=== PATIENT | female | born 1960 | race Caucasian/White ===

== ENCOUNTER 2022-08-20 08:17 | Day surgery (SDC) | payer BC, SELFPAY ==
[2022-08-20] VITALS (10 sets, daily range): BP systolic 99–142; BP diastolic 54–95; PULSE 65–75; RESP 9–22; TEMP 36–36.4; O2SAT 92–100; BMI 30.1
[2022-08-20] MEDS: Ketorolac 30 MG/ML VIAL IVP (09:19)
[2022-08-20] MEDS: Lactated Ringers 1,000 ML 80 ML IV (09:23)
--- NOTE | 2022-08-20 10:19 | W.SURGCON ---
Date of service: 08/20/22 Time of Service: 10:20 Assessment and Plan Assessment and plan (1) GI bleed: Status: Chronic Assessment and plan: 61-year-old woman with GI bleeding of unknown etiology or significance. Upper and lower endoscopy indicated. Possible hemorrhoid banding if hemorrhoids are found to be the problem. History of Present Illness Narrative: Patient well-known to me. She has a family history of colon cancer in a paternal aunt as well as a paternal uncle. She had her last colonoscopy 5 years ago which was reportedly normal. Over the last few months she has developed bleeding in her stools. The blood is mixed in with her stools. This is a new finding for her. She is otherwise not having any pain. She does have chronic constipation. PFSH All Active Problems (Updated 08/20/22 @ 10:21 by Juan Jose Saleem MD) GI bleed (Chronic) Acquired anophthalmos (Acute) Allergic rhinitis (Acute) Bilateral knee pain (Acute) Chronic constipation (Acute) Chronic fatigue syndrome (Acute) Chronic sinusitis (Acute) Depressive disorder (Chronic) Disorder of ethmoidal sinus (Acute) Dizziness and giddiness (Acute) Dysphagia (Acute) Gastric polyposis (Acute) Gastritis (Acute) GERD (gastroesophageal reflux disease) (Chronic) Goiter (Acute) Hernia of abdominal cavity (Acute) Hypercholesteremia (Acute) Hypothyroidism (Chronic) Insomnia (Acute) Iron deficiency anemia (Acute) Malignant tumor of thyroid gland (Acute) Menopause present (Acute) Migraine without aura (Acute) 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) Lung nodule (Acute) Obesity (Chronic) Obstructive sleep apnea syndrome in adult (Acute) Periodic limb movement disorder (Acute) Pure hyperglyceridemia (Acute) Sleep disorder (Acute) URI (upper respiratory infection) (Acute) Rectal bleeding (Acute) Medical History (Updated 08/20/22 @ 10:21 by Juan Jose Saleem MD) Amnesia Breast lump Bursitis Burst fracture of lumbar vertebra Disorder of thyroid gland Hypersomnia Joint pain Refractory migraine with aura Surgical History H/O tubal ligation History of ankle surgery (~12/08/08) History of colonoscopy 06/25/19 History of esophagogastroduodenoscopy (EGD) 09/13/19 History of eye removal (R) eye removal History of Rox fundoplication 07/02/20 History of thyroidectomy Hx of cataract surgery right eye Hx of cholecystectomy Hx of total hysterectomy laparoscopic. Family History Maternal Grandfather CAD (coronary artery disease) Mother Stroke Diabetes Heart disease Lupus Myocardial infarction Father Stroke Heart disease Brother Lung cancer Aunt Colon cancer Uncle Colon cancer Social History Smoking/Tobacco Use Status: Former Tobacco Use Quit Date: 02/07/99 Smoking risk assessment performed?: Yes Alcohol Intake: current Alcohol Intake frequency: holidays/special occasions only Drug use: Never Substance use type: does not use Housing: house Do you feel safe at home: Yes Do you feel safe in your relationship?: Yes Exam Narrative Exam Narrative: General: Nontoxic, comfortable and interactive Neuro: Alert and oriented x3 Psych: Appropriate mood and affect, good insight and understanding into her condition Chest: Nonlabored breathing Heart: Regular Results Last Vital Signs Temp 97.5 F L 08/20/22 08:30 Pulse 71 08/20/22 08:30 Resp 16 08/20/22 08:30 BP 127/95 H 08/20/22 08:30 Pulse Ox 98 08/20/22 08:30
--- NOTE | 2022-08-20 10:24 | ANES.PREOP_ITS ---
General Info Date of Service Date Performed: 08/20/22 Height: 5 ft 3 in Weight: 77.2 kg Body Mass Index (BMI): 30.1 Surgical Procedure: Operation Date: 08/20/22 10:20 Proposed Procedure Side Surgeon p Colonoscopy/Gastroscopy Juan Jose Saleem MD Meds Allergies and Home Medications Allergies Allergy/AdvReac Type Severity Reaction Status Date / Time aspirin AdvReac Intermediate nausea Verified 08/20/22 09:05 meperidine AdvReac Unknown Nausea Verified 08/20/22 09:05 Home Medication Medication Instructions Recorded ascorbate calcium (vitamin C) 500 500 mg PO DAILY 03/19/22 mg tablet atorvastatin 20 mg tablet 20 mg PO DAILY 03/19/22 calcium carbonate 600 mg-vitamin 1 tab PO DIRECTED 03/19/22 D3 5 mcg (200 unit) tablet cetirizine 10 mg capsule (Zyrtec) 10 mg PO DAILY PRN 03/19/22 duloxetine 60 mg capsule,delayed 60 mg PO DAILY 03/19/22 release elderberry See Rx Instructions .Route .COMPLEX 03/19/22 magnesium oxide 400 mg (241.3 mg 400 mg PO DAILY 03/19/22 magnesium) tablet meclizine 25 mg tablet 25 mg PO TID PRN 03/19/22 multivitamin 1 tab PO DAILY 03/19/22 hydrochlorothiazide 25 mg tablet 25 mg PO DAILY 08/16/22 omeprazole 20 mg capsule,delayed 20 mg PO DAILY 08/16/22 release vitamin B complex 1 cap PO DAILY 08/16/22 bisacodyl 5 mg tablet,delayed 5 mg PO ONCE colonscopy bowel prep 08/18/22 release (Dulcolax (bisacodyl)) #4 tabs levothyroxine 88 mcg capsule 88 mcg PO DAILY 08/18/22 mecobalamin (vitamin B12) 500 mcg 1,000 mcg PO DAILY 08/18/22 chewable tablet polyethylene glycol 3350 17 238 g PO ONCE colonoscopy prep 08/18/22 gram/dose oral powder #238 grams Current Visit Medications: Current Medications Generic Name Dose Route Start Last Admin Trade Name Freq PRN Reason Stop Dose Admin Ringer's Solution 1,000 mls @ 80 mls/hr 08/20/22 06:00 08/20/22 09:23 IV 09/18/22 23:59 80 mls/hr INFUSION TONA Administration IV Miscellaneous Supplies 1 each 08/20/22 06:00 Iv Access IV 09/18/22 23:59 DIRECTED TONA Sodium Chloride 0 ml 08/20/22 06:00 Normal Saline Flush 10 Ml Syr IV 09/18/22 23:59 PRN PRN Sodium Chloride 0 ml 08/20/22 06:00 Normal Saline 10 Ml Vial IJ 09/18/22 23:59 DIRECTED PRN Sterile Water 0 ml 08/20/22 06:00 Water,Injection,Sterile 10 Ml Vial IJ 09/18/22 23:59 DIRECTED PRN PFSH Active Problems Active Problems: Problem Status Onset Code GI bleed K92.2 Acquired anophthalmos Z90.01 Allergic rhinitis J30.9 Bilateral knee pain M25.561, M25.562 Chronic constipation K59.09 Chronic fatigue syndrome G93.32 Chronic sinusitis J32.9 Depressive disorder F32.A Disorder of ethmoidal sinus J34.9 Dizziness and giddiness R42 Dysphagia R13.10 Gastric polyposis K31.7 Gastritis K29.70 GERD (gastroesophageal reflux disease) K21.9 Goiter E04.9 Hernia of abdominal cavity K46.9 Hypercholesteremia E78.00 Hypothyroidism E03.9 Insomnia G47.00 Iron deficiency anemia D50.9 Malignant tumor of thyroid gland C73 Menopause present Z78.0 Migraine without aura G43.009 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 G56.90, G58.7 Lung nodule R91.1 Obesity E66.9 Obstructive sleep apnea syndrome in adult G47.33 Periodic limb movement disorder G47.61 Pure hyperglyceridemia E78.1 Sleep disorder G47.9 URI (upper respiratory infection) J06.9 Rectal bleeding K62.5 Medical History Medical History (Updated 08/20/22 @ 10:21 by Juan Jose Saleem MD) Amnesia Breast lump Bursitis Burst fracture of lumbar vertebra Disorder of thyroid gland Hypersomnia Joint pain Refractory migraine with aura Surgical History Surgical History H/O tubal ligation History of ankle surgery (~12/08/08) History of colonoscopy 06/25/19 History of esophagogastroduodenoscopy (EGD) 09/13/19 History of eye removal (R) eye removal History of Rox fundoplication 07/02/20 History of thyroidectomy Hx of cataract surgery right eye Hx of cholecystectomy Hx of total hysterectomy laparoscopic. Tobacco Smoking/Tobacco Use Status: Former Tobacco Use Alcohol Alcohol Intake: current Alcohol intake frequency: holidays/special occasions only Substance Use Substance use: Never Substance use type: does not use Vital Signs and Lab Results Vital Signs Most Recent Vital Signs in EMR: Most Recent Vital Signs Temp Pulse Resp BP Pulse Ox 36.4 C L 71 16 127/95 H 98 08/20/22 08:30 08/20/22 08:30 08/20/22 08:30 08/20/22 08:30 08/20/22 08:30 Lab Results Blood Type / Crossmatch: No Data to Display Complete Blood Count: No Data to Display Complete Metabolic Panel: No Data to Display Liver Function Panel: No Data to Display Coagulation Panel: No Data to Display Cardiac Panel: No Data to Display Arterial Blood Gas: No Data to Display Venous Blood Gas: No Data to Display Pancreas Panel: 2 No Data to Display Thyroid Panel: No Data to Display Infectious Disease: No Data to Display Blood Cultures: No Data to Display Toxicology Panel: No Data to Display Anesthesia Assessment and Plan Anesthesia History Personal History: Other Family History: No Family History of Anesthesia Complications Exercise Tolerance Exercise Tolerance: Metabolic Equivalents>4 Pertinent Negatives Pertinent Negatives: No Major Cardiovascular Symptoms or Complaints and No Major Pulmonary Symptoms or Complaints Cardiac & Pulmonary Exam Cardiac Exam: Normal S1/S2 Heart Sounds Pulmonary Exam: Clear Bilateral Breath Sounds Implantable Cardiac Device Does patient have a Pacemaker or an ICD?: No Airway Exam Known Difficult Airway: No Mallampati Class: 1 Mouth Opening: Normal (> 3cm) Thyromental Distance: Greater than 3 cm Neck Range of Motion: Full ROM Neck Circumference: Normal Teeth Condition: Normal Dentition ASA Classification ASA Score: ASA 2 Emergency Case?: No NPO Status NPO Status: NPO Clears >2 hours, Solids >8 hours Anesthesia Plan Resuscitation Status: Full Code Anesthesia Technique: General Anesthesia Airway Planned: Natural Airway Monitors Used: Standard Monitors
--- NOTE | 2022-08-20 10:49 | STOM_PTH ---
PATIENT: Kristen Lopez LOC: [facility] U#:[id number] AGE/SX: 61/F ROOM: RE08/20/[address]: Juan Jose Saleem : 1960 BED: DIS: 08/20/2022 SPEC #: [id number] RECD: 08/20/22 12:31 STATUS: DANA RE #: [id number] NAMRATA: 08/20/22 10:[address]: Juan Jose Saleem DEPT: Surgical Specimen RECD BY: Medina Perales ENTERED: 08/20/22 12:32 SP TYPE: STOMACH OTHR DR: Mata Carroll Tissues: 1 - BIOPSY BOWEL 2 - STOMACH BIOPSY Procedures: GROSS AND MICRO LEVEL 4 Comments: [id number]
--- NOTE | 2022-08-20 11:20 | W.PM.ENDDOP ---
Date of service: 08/20/22 Time of Service: 10:45 Endoscopy Report PROCEDURE DESCRIPTION: Procedures performed: 1.? Esophagogastroduodenoscopy with cold forceps biopsies Preoperative diagnosis: GI bleeding Postoperative diagnosis: Mild duodenitis, benign?appearing gastric polyps Surgeon: Joyce Saleem Anesthesia: Norma Indication for procedure: 61-year-old woman who has been seeing bright red blood mixed in with her stools. No other symptoms. Findings: - D3, D2 and D1 - mild inflammation in the duodenal bulb. Biopsies taken to confirm. - Pylorus - patent.? No bile reflux visualized during procedure. - Antrum - does not look inflamed - biopsies taken to rule out occult H. pylori - Stomach Body - normal with a couple of benign?appearing gastric polyps - Fundus - fundoplication intact. Wrap below the hiatus. - Hiatus - no evidence of recurrent hernia, fundoplication appears correct. - Esophagus - distal esophagus does not look inflamed.? No stricture or evidence of Case's.? The mid and proximal esophagus was also normal. - Cords/hypopharynx - Normal OVERALL - nothing found/seen which would explain GI bleeding. Mild duodenitis would not be the cause of bright red blood mixed in stool. Surveillance/follow-up recommendations: Pending biopsy results.?? Unlikely to be necessary.?? Complications: None Blood loss: Minimal Specimens:? YES Procedure in detail: Written consent was obtained from the patient who was in agreement with the risks, benefits and indications of the procedure.? We went to the endoscopy suite and laid the patient in left lateral decubitus position.? Anesthesia was administered which was tolerated well.? A timeout was performed and when we are all in agreement we began the procedure. A well?lubricated endoscope was advanced without difficulty down the esophagus, into the stomach, through a patent pylorus and into the duodenum.? It was then slowly pulled back with findings noted above. The scope was then removed and the patient tolerated the procedure well and was then turned for the colonoscopy portion of the procedure (see separate procedure note)
--- NOTE | 2022-08-20 11:20 | W.COLOREPORT ---
Date of service: 08/20/22 Time of Service: 10:55 Colonoscopy Report Procedure Description: Procedures performed: 1. Colonoscopy Preoperative diagnosis: GI bleeding Postoperative diagnosis: Grade 2 / 3 internal hemorrhoids Surgeon: Joyce Saleem Anesthesia: Sandra Indication for procedure: 61-year-old woman has a strong family history of colon cancer in paternal aunt and paternal uncle. Prior colonoscopies were normal. Findings: No polyps or tumors. No evidence of inflammation or colitis. No diverticuli that were obvious. Grade 2 internal hemorrhoids along 2 columns and grade 3 internal hemorrhoids along 1 column. Surveillance/follow-up recommendations: Blood mixed with stool felt to be likely related to hemorrhoids. 5 years for next colorectal cancer surveillance colonoscopy Complications: None Blood loss: Minimal Prep: Excellent Procedure in detail: Written consent was obtained from the patient who was in agreement with the risks, benefits and indications of the procedure.? The patient was turned from her upper endoscopy (see separate procedure note) and anesthesia was continued and the patient was kept in the same position and I started the colonoscopy portion of the procedure.? Digital rectal exam and visual examination was performed.? Normal sphincter tone.? Internal hemorrhoids are palpable.? A well?lubricated colonoscope was advanced without difficulty all the way to the cecum identified by the ileocecal valve, and triangular folds and appendiceal orifice.? It was then slowly withdrawn.?? Retroflexion was performed in the rectum.? The findings/interventions are noted above. The scope was then removed and the patient tolerated the procedure well and then hemorrhoid banding/anoscopy was performed (see separate procedure note).
--- NOTE | 2022-08-20 11:20 | W.PM.OP ---
Date of service: 08/20/22 Time of Service: 11:05 Operative Note Operative Note Refer to Anesthesia Record Procedure Description: Procedures performed: 1.? Anoscopy 2.? Internal Hemorrhoid banding x3 Preoperative diagnosis: Symptomatic grade 2 / 3 internal hemorrhoids Postoperative diagnosis: Same Surgeon: Joyce Saleem Anesthesia: Norma Indication for procedure: 61-year-old woman with bleeding in her stools and found to have significant hemorrhoidal disease on colonoscopy Findings: All 3 columns rubber?banded Surveillance/follow-up recommendations: No follow-up needed.? The durability of hemorrhoidal interventions varies greatly and sometimes is only a few years before other hemorrhoids develop/recur. Complications: None Blood loss: Minimal Specimens:? No Procedure in detail: Written consent was obtained from the patient who was in agreement with the risks, benefits and indications of the procedure.? She was kept in the same position after the colonoscopy was done (see separate procedure note) and a well?lubricated anoscope was introduced in the anal canal carefully evaluated for other pathology such as fistulas and/or fissures.? None were seen. Grade 2 internal hemorrhoids were visualized at all 3 columns. On the left side was a grade 3 hemorrhoid as well. Rubber band ligation was performed in all 3 columns, just above the dentate line.? The patient tolerated this procedure well. The scope was then removed and the PACU in stable condition and was having only mild perianal pain at that time.
--- NOTE | 2022-08-20 11:20 | W.PM.DSUDISC ---
Date of service: 08/20/22 Time of Service: 11:20 Discharge Plan Disposition Patient Disposition: Home Discharge Details Attending Provider: Juan Jose Saleem Primary Care Provider: Mata Carroll Home Meds and New Rx's Prescriptions: No Action calcium carbonate-vitamin D3 600 mg-5 mcg (200 unit) tablet 1 tab PO DIRECTED atorvastatin 20 mg tablet 20 mg PO DAILY duloxetine 60 mg capsule,delayed release(DR/EC) 60 mg PO DAILY elderberry See Rx Instructions .ROUTE .COMPLEX Rx Instructions: as directed; magnesium oxide 400 mg (241.3 mg magnesium) tablet 400 mg PO DAILY meclizine 25 mg tablet 25 mg PO TID PRN multivitamin Tablet 1 tab PO DAILY ascorbate calcium (vitamin C) 500 mg tablet 500 mg PO DAILY Zyrtec 10 mg capsule 10 mg PO DAILY PRN hydrochlorothiazide 25 mg tablet 25 mg PO DAILY omeprazole 20 mg capsule,delayed release(DR/EC) 20 mg PO DAILY vitamin B complex Capsule 1 cap PO DAILY polyethylene glycol 3350 17 gram/dose powder 238 g PO ONCE Qty: 238 0RF Rx Instructions: take per colonoscopy instructions bisacodyl [Dulcolax (bisacodyl)] 5 mg tablet,delayed release (DR/EC) 5 mg PO ONCE Qty: 4 0RF Rx Instructions: take per colonoscopy instructions levothyroxine 88 mcg capsule 88 mcg PO DAILY mecobalamin (vitamin B12) 500 mcg tablet,chewable 1,000 mcg PO DAILY Discharge Instructions Additional Instructions: FINDINGS: Internal hemorrhoidal disease was found and is probably the underlying cause of your symptoms. Multiple veins were banded today and hopefully this takes care of the problem. Separately, some mild inflammation was seen in your duodenum and biopsied. This also could be playing a role if symptoms persist, but is doubtful. We will wait for the biopsy results to decide. No evidence of colon cancer or any other concerning for serious problem. Activity:: Activity as Tolerated Diet:: As Tolerated Discharge Orders Discharge Orders: Discharge Order (Routine); Ordered 08/20/22 Ordered By: Juan Jose Saleem DS: Diagnosis Discharge Diagnosis (1) GI bleed: Status: Chronic Asessment and Plan: Stable. Possible duodenal inflammation found today. As well as significant internal hemorrhoidal disease.
[2022-08-20] MEDS: fentaNYL 100 MCG/2 ML VIAL IVP (11:54)
[2022-08-20] MEDS: Ondansetron 4 MG/2 ML VIAL IVP (11:56)
[2022-08-20] MEDS: Scopolamine 1 MG/3 DAYS PATCH TD (11:58)
[2022-08-20] MEDS: HYDROmorphone 2 MG/ML SYR IVP (12:22)
--- NOTE | 2022-08-20 12:45 | W.ANESPOSTOP ---
Postoperative Evaluation Date, Time and Location Date Performed: 08/20/22 Time Performed: 12:45 Patient Location: PACU Vital Signs Most Recent Imported Vital Signs: Most Recent Vital Signs Temp Pulse Resp BP Pulse Ox 36.4 C L 74 11 L 127/80 98 08/20/22 12:30 08/20/22 12:30 08/20/22 12:30 08/20/22 12:30 08/20/22 12:30 Pain Score Most Recent Pain Score: Most Recent Pain Score Pain Level 5 08/20/22 12:30 Assessment Mental Status: Awake (Alert & Oriented to Patient Baseline) Airway and Respiratory Function: Patent airway with normal (patient baseline) respiratory exam Cardiovascular Function: Hemodynamically Stable Hydration Status: Adequately Hydrated Nausea & Vomiting: No Nausea or Vomiting Pain: Pain is Moderate or Severe Postoperative Pain Management: Pain being addressed with medication Peripheral Nerve Block: Patient did not receive a nerve block
[2022-08-20] MEDS: Acetaminophen 500 MG TAB 1000 MG PO (13:21)
== END 2022-08-20 13:45 | disposition home or self-care (01) ==
PROVIDERS: PCP Registered Nurse; Visit Provider Student in an Organized Health Care Education/Training Program
PROC: (CPT 46221; principal; 2022-08-20 10:15)
PROC: (CPT 46221; 2022-08-20 10:15)
DX: K92.1 Melena (principal); K64.2 Third degree hemorrhoids; K64.1 Second degree hemorrhoids; K29.80 Duodenitis without bleeding; K31.7 Polyp of stomach and duodenum; K31.89 Other diseases of stomach and duodenum
CPT/HCPCS: 46221; 45378; 43239; 88305; J1170; J1885; J2001; J2405; J3010

== ENCOUNTER 2024-04-24 15:42 | Outpatient (CLI) | payer BC, SELFPAY ==
--- NOTE | 2024-04-24 13:30 | DI.RAD_ITS ---
Exam(s) XR SHOULDER RT COMPLETE 2+V EXAM: XR SHOULDER RT COMPLETE 2+V CLINICAL HISTORY: RIGHT SHOULDER PAIN. TECHNIQUE: 2D digital imaging was performed of the right shoulder. Two images were obtained. Axill james and Grashey views were obtained. COMPARISON: CR XR CHEST 2VW (D) from 04/29/2023 MR MR SHOULDER RT WO CONTRAST from 03/13/2024 FINDINGS: BONES: No acute fracture is present. No bony destructive lesion is seen. JOINTS: No dislocation present. There are degenerative changes seen at the acromioclavicular joint. The glenohumeral joint appears well maintained. SOFT TISSUE: Normal. IMPRESSION: Degenerative changes seen at the acromioclavicular joint. DATA REPOSITORY: RADIATION DOSE DELIVERED:
== END 2024-04-24 15:43 | disposition home or self-care (01) ==
LOC: DIORS 15:42
PROVIDERS: PCP Registered Nurse; Visit Provider Student in an Organized Health Care Education/Training Program
DX: M25.511 Pain in right shoulder (principal)
CPT/HCPCS: 73030

== ENCOUNTER 2024-11-23 15:45 | Observation (INO) | payer BC, SELFPAY ==
[2024-11-23] VITALS (61 sets, daily range): BP systolic 102–164; BP diastolic 67–86; PULSE 63–99; RESP 9–29; TEMP 34–36.7; O2SAT 75–100; BMI 30.5
--- NOTE | 2024-11-23 | DI.RAD_ITS ---
Exam(s) XR PORTABLE CHEST AP EXAM: XR PORTABLE CHEST AP CLINICAL HISTORY: Poor oxygen saturations TECHNIQUE: 2D digital imaging was performed. Portable semi-erect COMPARISON: CR XR CHEST 2VW (D) from 04/29/2023 CR XR SHOULDER RT COMPLETE 2+V from 04/24/[address] UPPER EXTREMITY RT WO from 09/24/2024 FINDINGS: LUNGS: Not well inflated. Near complete atelectasis of the right upper lobe. The densities are noted at both lung bases. Atelectasis versus infiltrates. No pleural abnormality seen. HEART: Normal size. AORTA: Normal diameter. BONES: Unremarkable for age. Soft tissues: Unremarkable. IMPRESSION: Severe right upper lobe atelectasis. Poor pulmonary inflation. Bibasilar atelectasis versus infiltrates. DATA REPOSITORY: RADIATION DOSE DELIVERED:
--- NOTE | 2024-11-23 07:15 | W.PM.DSUDISC ---
Date of service: 11/23/24 Discharge Plan Disposition Patient Disposition: Home Condition: Stable Discharge Details Attending Provider: Shad Jacobo Primary Care Provider: Walker Quintana Home Meds and New Rx's Prescriptions: New naproxen 250 mg tablet 250 - 500 mg PO BID PRN (Reason: moderate pain and swelling) Qty: 40 0RF oxycodone 5 mg tablet 5 - 10 mg PO .q4-6h MDD 30 mg PRN (Reason: severe pain) Qty: 18 0RF Continued cholecalciferol (vitamin D3) 125 mcg (5,000 unit) capsule 125 mcg PO DAILY venlafaxine 75 mg tablet 75 mg PO DAILY atorvastatin 20 mg tablet 20 mg PO DAILY elderberry See Rx Instructions .ROUTE .COMPLEX Rx Instructions: as directed; magnesium oxide 400 mg (241.3 mg magnesium) tablet 400 mg PO DAILY meclizine 25 mg tablet 25 mg PO TID PRN multivitamin Tablet 1 tab PO DAILY ascorbate calcium (vitamin C) 500 mg tablet 500 mg PO DAILY Zyrtec 10 mg capsule 10 mg PO DAILY PRN omeprazole 20 mg capsule,delayed release(DR/EC) 20 mg PO DAILY vitamin B complex Capsule 1 cap PO DAILY levothyroxine 88 mcg capsule 88 mcg PO DAILY Fiber (psyllium husk-sugar) 3.4 gram/12 gram powder 1 tbsp PO BID Qty: 1368 0RF Rx Instructions: take as instrucked albuterol sulfate 2.5 mg /3 mL (0.083 %) solution for nebulization 2.5 mg inhalation Q6H PRN ipratropium-albuterol 0.5 mg-3 mg(2.5 mg base)/3 mL solution for nebulization 3 ml inhalation QID PRN iron-vit C-vit [id number] acid [Iron 100 Plus] See Rx Instructions .ROUTE DIRECTED Rx Instructions: as directed; budesonide-formoterol [Symbicort] 80-4.5 mcg/actuation HFA aerosol inhaler 2 puff inhalation BID turmeric 250 mg PO DAILY hydrochlorothiazide 25 mg tablet 25 mg PO DIRECTED Discharge Instructions Additional Instructions: Surgery: Right shoulder arthroscopy with rotator cuff repair (supraspinatus), biceps tenodesis, extensive debridement, subacromial decompression, and distal clavicle excision 11/23/24 Activity: For 6 weeks, you should keep your arm at your side in a neutral position at all times except for physical therapy. Do not try to lift or raise your arm using your own muscles. You should use the sling whenever you are out of the house. At home it is best to remove the sling and rest the arm on a pillow at your side or support the operative side with your other hand. You may allow the arm to dangle at your side. A physical therapy prescription will be sent electronically to begin in about 3 weeks. Standard protocol Prescriptions: Naproxen 250 mg take 1-2 every 12 hours with a meal as needed for moderate pain Oxycodone 5 mg take 1-2 every 4-6 hours as needed for severe pain You may use [id number] Tylenol (acetaminophen) as needed for mild pain. These pain medications may be taken all at once or in different combinations as needed. Also, recommend Colace (docusate) as a stool softener as surgery and pain medicine cause constipation. You may try nurg-ewg-rvprqgb diphenhydramine (Benadryl) 25-50 mg nightly as a sleep aid Dressings: Remove shoulder bandage after 3 days. Leave the sticky Steri-Strips in place until they fall off or remove them after you shower. Cover the incisions with Band-Aids or leave them open to air. You may shower after 5 days. Follow-up: 10-[address] Jacobo You may take off the leg compression stockings this evening at home. You may also leave them on a few days longer if you have a history of leg swelling or edema. Let us know right away if you develop any redness, drainage, fevers, chest pain, or trouble breathing. Do not drink alcohol or drive for at least 24 hours after anesthesia. Please call the office during business hours with any questions or concerns. Discharge Orders Discharge Orders: Discharge Order (Routine); Ordered 11/23/24 Ordered By: Loyda Daley DS: Diagnosis Discharge Diagnosis (1) Rotator cuff tear arthropathy of right shoulder: Status: Acute
[2024-11-23] MEDS: Lactated Ringers 1,000 ML 30 ML IV ×2 (09:31→20:43)
--- NOTE | 2024-11-23 09:41 | W.ANESPRE ---
General Info Date of Service Date Performed: 11/23/24 Height: 5 ft 2 in Weight: 75.8 kg Body Mass Index (BMI): 30.5 Surgical Procedure: Operation Date: 11/23/24 10:25 Proposed Procedure Side Surgeon p Shoulder Rotator Cuff Arthroscopic w/Extensive Debridement, Biceps Tenodesis, Subacromial Decompression, Distal Clavicle Excision Right Shad Jacobo MD Meds Allergies and Home Medications Allergies Allergy/AdvReac Type Severity Reaction Status Date / Time aspirin AdvReac Intermediate nausea Verified 11/23/24 09:10 meperidine AdvReac Unknown Nausea Verified 11/23/24 09:10 Home Medication ?Medication ?Instructions ?Recorded ascorbate calcium (vitamin C) 500 500 mg PO DAILY 03/19/22 mg tablet atorvastatin 20 mg tablet 20 mg PO DAILY 03/19/22 cetirizine 10 mg capsule (Zyrtec) 10 mg PO DAILY PRN 03/19/22 elderberry See Rx Instructions .Route .COMPLEX 03/19/22 magnesium oxide 400 mg (241.3 mg 400 mg PO DAILY 03/19/22 magnesium) tablet meclizine 25 mg tablet 25 mg PO TID PRN 03/19/22 multivitamin 1 tab PO DAILY 03/19/22 omeprazole 20 mg capsule,delayed 20 mg PO DAILY 08/16/22 release vitamin B complex 1 cap PO DAILY 08/16/22 levothyroxine 88 mcg capsule 88 mcg PO DAILY 08/18/22 psyllium husk (with sugar) 3.4 1 tbsp PO BID #1,368 grams 08/26/22 gram/12 gram oral powder (Fiber (psyllium husk-sugar)) albuterol sulfate 2.5 mg/3 mL 2.5 mg inhalation Q6H PRN 05/19/23 (0.083 %) solution for nebulization budesonide-formoterol HFA 80 2 puff inhalation BID 05/19/23 mcg-4.5 mcg/actuation aerosol inhaler (Symbicort) ipratropium 0.5 mg-albuterol 3 mg 3 ml inhalation QID PRN 05/19/23 (2.5 mg base)/3 mL nebulization soln iron-vit C-vit [id number]-[id number] acid See Rx Instructions .Route 05/19/23 [Iron 100 Plus] DIRECTED turmeric 250 mg PO DAILY 05/19/23 hydrochlorothiazide 25 mg tablet 25 mg PO DIRECTED 07/15/23 cholecalciferol (vitamin D3) 125 125 mcg PO DAILY 04/24/24 mcg (5,000 unit) capsule venlafaxine 75 mg tablet 75 mg PO DAILY 09/18/24 Current Visit Medications: Current Medications Generic Name Dose Route Start Last Admin Trade Name Freq PRN Reason Stop Dose Admin Ringer's Solution 1,000 mls @ 30 mls/hr 11/23/24 06:00 11/23/24 09:31 IV 11/23/24 23:59 30 mls/hr INFUSION TONA Administration Cefazolin Sodium/Dextrose 2 gm in 50 mls @ 100 mls/hr 11/23/24 06:00 Ancef Duplex IVPB 11/23/24 23:59 PREOP TONA Tranexamic Acid/Sodium Chloride 1,000 mg in 100 mls @ 600 mls/hr 11/23/24 06:00 IVPB 11/23/24 23:59 PREOP TONA IV Miscellaneous Supplies 1 each 11/23/24 06:00 Iv Access IV 11/23/24 23:59 DIRECTED TONA Oxycodone HCl 0 mg 11/23/24 07:15 Oxycodone 5 Mg Tab PO 12/23/24 07:14 Q3H PRN PRN Pain Sodium Chloride 0 ml 11/23/24 06:00 Normal Saline Flush 10 Ml Syr IV 11/23/24 23:59 PRN PRN Sodium Chloride 0 ml 11/23/24 06:00 Normal Saline 10 Ml Vial IJ 11/23/24 23:59 DIRECTED PRN Sterile Water 0 ml 11/23/24 06:00 Water,Injection,Sterile 10 Ml Vial IJ 11/23/24 23:59 DIRECTED PRN PFSH Active Problems Active Problems: Problem Status Onset Code Rotator cuff tear arthropathy of right shoulder Acute M75.101, M12.811 Sleep apnea, obstructive Chronic G47.33 Anophthalmos Acute Q11.1 Hemorrhoid Acute K64.9 GI bleed Chronic K92.2 Acquired anophthalmos Acute Z90.01 Allergic rhinitis Acute J30.9 Bilateral knee pain Acute M25.561, M25.562 Chronic constipation Acute K59.09 Chronic fatigue syndrome Acute G93.32 Chronic sinusitis Acute J32.9 Depressive disorder Chronic F32.A Disorder of ethmoidal sinus Acute J34.9 Dizziness and giddiness Acute R42 Dysphagia Acute R13.10 Gastric polyposis Acute K31.7 Gastritis Acute K29.70 GERD (gastroesophageal reflux disease) Chronic K21.9 Goiter Acute E04.9 Hernia of abdominal cavity Acute K46.9 Hypercholesteremia Acute E78.00 Hypothyroidism Chronic E03.9 Insomnia Acute G47.00 Iron deficiency anemia Acute D50.9 Malignant tumor of thyroid gland Acute C73 Menopause present Acute Z78.0 Migraine without aura Acute G43.009 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, 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 Lung nodule Acute R91.1 Obesity Chronic E66.9 Obstructive sleep apnea syndrome in adult Acute G47.33 Periodic limb movement disorder Acute G47.61 Pure hyperglyceridemia Acute E78.1 Sleep disorder Acute G47.9 URI (upper respiratory infection) Acute J06.9 Rectal bleeding Acute K62.5 Medical History Medical History Refractory migraine with aura Joint pain Hypersomnia Disorder of thyroid gland Bursitis Breast lump Amnesia Burst fracture of lumbar vertebra Surgical History Surgical History History of eye removal (R) eye removal History of ankle surgery (~12/08/08) Hx of cataract surgery right eye Hx of cholecystectomy H/O tubal ligation Hx of total hysterectomy laparoscopic. History of colonoscopy (~08/2022) 06/25/19 History of esophagogastroduodenoscopy (EGD) (~08/2022) 08/20/22 egd and closed a duodenal fistula History of Rox fundoplication 07/02/20 History of thyroidectomy Tobacco Smoking/Tobacco Use Status: Former Tobacco Use Passive smoking exposure: No Alcohol Alcohol Intake: former Substance Use Substance use: Never Substance use type: does not use Vital Signs and Lab Results Vital Signs Most Recent Vital Signs in EMR: Most Recent Vital Signs Temp Pulse Resp BP Pulse Ox 36.3 C L 63 16 164/83 H 100 11/23/24 08:58 11/23/24 08:58 11/23/24 08:58 11/23/24 08:58 11/23/24 08:58 Anesthesia Assessment and Plan Anesthesia History Personal History: PONV (and migraines) Family History: No Family History of Anesthesia Complications Exercise Tolerance Exercise Tolerance: Metabolic Equivalents>4 Pertinent Negatives Pertinent Negatives: No Symptoms of GERD, No Major Cardiovascular Symptoms or Complaints and No Major Pulmonary Symptoms or Complaints Cardiac & Pulmonary Exam Cardiac Exam: Normal S1/S2 Heart Sounds Pulmonary Exam: Clear Bilateral Breath Sounds Implantable Cardiac Device Does patient have a Pacemaker or an ICD?: No Airway Exam Known Difficult Airway: No Mallampati Class: 1 Mouth Opening: Normal (> 3cm) Thyromental Distance: Greater than 3 cm Neck Range of Motion: Full ROM Neck Circumference: Normal Teeth Condition: Normal Dentition ASA Classification ASA Score: ASA 2 Emergency Case?: No NPO Status NPO Status: NPO Clears >2 hours, Solids >8 hours Anesthesia Plan Resuscitation Status: Full Code Anesthesia Technique: General Anesthesia Airway Planned: Endotracheal Tube Pain Management: Surgeon and patient request nerve block Monitors Used: Standard Monitors Preoperative Comments:: Artificial right eye, requests that eyelid is taped shut during procedure.
--- NOTE | 2024-11-23 11:01 | W.PM.OP ---
Operative Note Operative Note PRE-OP DIAGNOSIS: Right: 1. Rotator cuff tear 2. LHB tendinopathy 3. Bursitis 4. ACJ arthritis POST-OP DIAGNOSIS: same PROCEDURE: Right: 1. Rotator cuff repair, CPT# 47166. This involved repair of the supraspinatus using an anchor and sutures to reattach the rotator cuff back to the footprint of the greater tuberosity. 2. Arthroscopic biceps tenodesis, CPT# 80932. This involved arthroscopically suturing and reattaching the long head of the biceps tendon to the proximal humerus at the superior margin of the bicipital groove with a screw at the correct tension. 3. Extensive debridement, CPT# 06663. This involved using arthroscopic hand instruments, power instruments, and radiofrequency instruments to release the long head of the biceps tendon and debride areas of labral tearing, synovitis, partial articular subscapularis and supraspinatus tearing, release [facility] L and early anterior adhesions, and lightly debride chondromalacia about the central glenoid working within the glenohumeral joint anteriorly, superiorly and posteriorly. 4. Subacromial decompression with partial acromioplasty, CPT# 17274. This involved using arthroscopic power instruments and a radiofrequency wand to complete a bursectomy and smooth the undersurface of the acromion. 5. Arthroscopic distal clavicle excision, CPT# 44983. This involved arthroscopically exposing the underside of the acromioclavicular joint, smoothing out bone spurs, and removing few millimeters of the distal clavicle and medial acromion there was no bone left engaging. The marketing assistant manager was medically required in order to help assist in techniques above, which require positioning the arm, holding the arthroscope, and manipulating multiple instruments and sutures at the same time. This cannot be done without the help of an experienced marketing assistant manager. SURGEON: Shad Jacobo HELP DESK REPRESENTATIVE: Loyda Daley ANESTHESIA TYPE: Local By Surgeon, General LMA/ETT and Primary Nerve Block Refer to Anesthesia Record ESTIMATED BLOOD LOSS: 10 PATHOLOGY: none sent COMPLICATIONS: None Patient was transported to: PACU Patient's condition: stable Implants: Arthrex: 4.75mm SwiveLock x 1 and 5.5 mm SwiveLock x 1 Indications: The patient was diagnosed with the above conditions and appropriately indicated for surgical intervention. Please see complete medical record for details. Findings: Exam under anesthesia: Full range of motion, no instability Glenohumeral joint: Moderate synovitis capsulitis and early adhesions subscapularis [facility] L. Moderate central glenoid chondromalacia with more mild diffuse chondromalacia. Degenerative mild to moderate anterior and posterior superior labral tearing. Degenerative type I SLAP tear with biceps injection and mild partial tearing at the superior aspect of the groove near a mild upper lateral partial subscapularis tear. Moderate supraspinatus thinning central to anteriorly with mild footprint exposure. Intact infraspinatus.. Subacromial space: Moderate bursitis, early subacromial narrowing, engaging distal clavicle on acromion arthritis, intact bursal rotator cuff with hemorrhagic injection. Procedure Description: In the operating room, general anesthesia was induced. Bilateral shoulders were examined. The patient was positioned in the beachchair position. All bony prominences were well-padded. Preoperative antibiotics were administered. The shoulder was prepped and draped in the usual sterile fashion. The correct patient, procedure, and side of the procedure were all verified prior to incision. Starting through the posterior portal a standard complete diagnostic arthroscopy was performed of the glenohumeral joint including inspection of the long head of the biceps, anterior and superior labrum, subscapularis tendon, supraspinatus and infraspinatus tendons, and axillary recess. The glenoid and humeral head cartilage as well as the posterior labrum were inspected from an anterior viewing portal. Significant findings and interventions noted above. No significant arthritis was found. The subscapularis tendon tear only required some debridement. An all-arthroscopic suprapectoral biceps tenodesis was performed through an anterior portal using a Loop N Tack method with a SutureTape FiberLink cinched around and through the tendon. The biceps was tenotomized from the labrum and fixated with a suture anchor at the superior margin of the bicipital groove. The extra knotless repair suture was passed around the tendon back through the anchor eyelet mechanism and used an additional secured to the tendon which was draped nicely from the superior bicipital groove and over the subscapularis immediately adjacent. The highest grade area of supraspinous articular tear was marked with a spinal needle from lateral through the subacromial space. Starting through the posterior portal, the arthroscope was directed into the subacromial space. A lateral 50 yard line lateral portal was created. A combination of power instruments and a radiofrequency ablator were used to debride bursitis anteriorly, posteriorly, and laterally as well as expose and smooth bone spurring on the undersurface of the acromion. The coracoacromial ligament was partially released. The bursectomy was completed viewing laterally and working from posteriorly and the rotator cuff was thoroughly inspected with findings noted above. The anterior portal was redirected towards the undersurface of the AC joint. A shaver and electrocautery device were used to clear soft tissue from the undersurface of the AC joint. The distalmost about 5 mm of the distal clavicle was then removed and smoothed as was some of the medial acromion. Care was taken to to preserve the superior capsular structure and ensure that proper amount of bone was removed and there was no engaging bone left behind. A Dominique cannula was inserted laterally to help retract bursa and probe and test the rotator cuff especially supraspinatus centrally anteriorly and laterally. There was an area of thinning about the drop-off centrally anteriorly, which correlated with the area of highest grade articular sided tearing. The liberator elevator was then used from lateral preserving tendon length and quite readily fell into the tendon tear from lateral into the joint full-thickness. The tendon tear was debrided lightly and then measured with a cuff grasper showing a relatively small area especially laterally. Instead of releasing the majority intact tendon from lateral, decision was made to proceed with a speed fix type repair. The scorpion was used to place a widely and immediately spaced inverted horizontal mattress stitch followed by a central suture tape FiberLink in cinch mode as ripstop configuration nicely spanning the tear zone. The bone laterally was punched and quite soft so an oversized 5.5 mm anchor was used to secure without undue tension the rotator cuff repair. There was a small amount of redundant tissue anteriorly, which was incorporated into repair using the scorpion and the sliding #2 FiberWire with SMC arthroscopic knots. Repair was stable through testing. There is no additional tearing requiring repair. The shoulder was drained of arthroscopic fluid. All portal sites were copiously irrigated. These incisions were closed using 3-0 Monocryl in a buried fashion and then covered with Mastisol, Steri-Strips, Xeroform, dry gauze, and ABDs. The dressings were covered and secured with Medipore tape. The operative extremity was placed into a sling for immobilization. The patient awoke from anesthesia without complication and was transferred to the recovery room in a stable condition. Date of Procedure: 11/23/24
[2024-11-23] MEDS: TRANEXAMIC ACID/SOD. CHL. 1,000 MG/100 ML BAG 600 MG IVPB (11:29)
--- NOTE | 2024-11-23 11:47 | W.ANESNERVE ---
Nerve Block Single Injection Procedure Date and Time Date Performed: 11/23/24 Procedure Start: 10:46 Location Where Procedure Performed Procedure Location: Day Surgery Unit Reason Performed: Postoperative Analgesia Requesting Provider: Shad Jacobo Timeout Performed Timeout Performed: Yes Monitoring Used ECG, Blood Pressure, SpO2 and See EMR for corresponding vital signs Sterility Sterility: Hand Hygiene, Surgical Cap, Surgical Mask, Sterile Gloves and Chlorhexidine Sedation Given During Procedure Sedation Given (Indicate Dose Given): Versed IV Dose:: 2 mg Patient Mental Status Patient Mental Status: Sedate with meaningful communication Nerve Block 1st Nerve Block: Laterality: Right Block Type: Interscalene Ultrasound Image Saved?: Yes Needle / Catheter Used: 80mm SonoPlex II Local Anesthetic Bolus (Indicate Dose Given): Lidocaine used for local infiltration of skin, Injected in 3-5ml increments after negative blood aspiration, Bupivacaine 0.25% Dose:: 10 ml and Exparel Dose:: 10 ml Additives (Indicate Dose Given): None Ultrasound: Sterile probe cover and gel used Nerve Stimulator: Supplement to Ultrasound use and No twitch or parasthesia noted < 0.5 mA Paresthesia: None Procedure Tolerated: No Complications and Patient tolerated well Procedure Outcome: Successful Performed By: Rachana Gardner
[2024-11-23] MEDS: Bupivacaine 0.25% Pres-Free W/EPI 30 ML VIAL (12:03)
[2024-11-23] MEDS: ceFAZolin 2 GM/50 ML BAG IVPB (12:20)
[2024-11-23] MEDS: EPINEPHrine 10 MG/10 ML ML (13:05)
[2024-11-23] MEDS: oxyCODONE 5 MG TAB PO ×2 (15:35→16:00)
--- NOTE | 2024-11-23 16:54 | W.ANESPOSTOP ---
Postoperative Evaluation Date, Time and Location Date Performed: 11/23/24 Time Performed: 16:01 Patient Location: PACU Vital Signs Most Recent Imported Vital Signs: Most Recent Vital Signs Temp Pulse Resp BP Pulse Ox 36.7 C 87 20 129/79 93 11/23/24 16:21 11/23/24 16:21 11/23/24 16:35 11/23/24 16:21 11/23/24 16:35 Pain Score Most Recent Pain Score: Most Recent Pain Score Pain Level 8 11/23/24 16:21 Assessment Mental Status: Awake (Alert & Oriented to Patient Baseline) Airway and Respiratory Function: Patient has been admitted and is receiving care as an inpatient Cardiovascular Function: Hemodynamically Stable Hydration Status: Adequately Hydrated Nausea & Vomiting: No Nausea or Vomiting Pain: Pain is Moderate or Severe Postoperative Pain Management: Pain being addressed with medication Peripheral Nerve Block: Regional nerve block not resolved at time of post operative discharge
[2024-11-23] MEDS: Naproxen 250 MG TAB PO (17:03)
[2024-11-23] MEDS: Normal Saline Flush 10 ML SYR IV (20:13)
[2024-11-23] MEDS: MORPHine 10 MG/ML VIAL IVP ×2 (20:27→22:42)
[2024-11-24] MEDS: Naproxen 250 MG TAB PO ×2 (00:48→07:47)
[2024-11-24 03:30] VITALS: BP 101/65; PULSE 61; RESP 16; TEMP 36.5; O2SAT 93
[2024-11-24] MEDS: Acetaminophen 500 MG TAB 1000 MG PO (03:50)
[2024-11-24] MEDS: Levothyroxine 88 MCG TAB PO (06:04)
--- NOTE | 2024-11-24 06:49 | W.PM.DS.N ---
Date of service: 11/24/24 Time of Service: 06:49 DS: Diagnosis Discharge Diagnosis (1) Rotator cuff tear arthropathy of right shoulder: Status: Acute (2) Tendonitis of long head of biceps brachii of right shoulder: Status: Acute (3) Arthritis of right acromioclavicular joint: Status: Acute (4) Bursitis of right shoulder: Status: Acute (5) Rotator cuff tear, right: Status: Acute Discharge Plan Disposition Patient Disposition: Home Condition: Stable Discharge Details Reason For Visit: Rotator cuff tear Admit Date/Time: 11/23/24 15:45 Admit Provider: Shad Jacobo Attending Provider: Shad Jacobo Primary Care Provider: Walker Quintana Hospital Course Hospital Course: Overnight observation due to pain and respiratory status Home Meds and New Rx's Prescriptions: New naproxen 250 mg tablet 250 - 500 mg PO BID PRN (Reason: moderate pain and swelling) Qty: 40 0RF oxycodone 5 mg tablet 5 - 10 mg PO .q4-6h MDD 30 mg PRN (Reason: severe pain) Qty: 18 0RF Continued cholecalciferol (vitamin D3) 125 mcg (5,000 unit) capsule 125 mcg PO DAILY venlafaxine 75 mg tablet 75 mg PO DAILY atorvastatin 20 mg tablet 20 mg PO DAILY elderberry See Rx Instructions .ROUTE .COMPLEX Rx Instructions: as directed; magnesium oxide 400 mg (241.3 mg magnesium) tablet 400 mg PO DAILY meclizine 25 mg tablet 25 mg PO TID PRN multivitamin Tablet 1 tab PO DAILY ascorbate calcium (vitamin C) 500 mg tablet 500 mg PO DAILY Zyrtec 10 mg capsule 10 mg PO DAILY PRN omeprazole 20 mg capsule,delayed release(DR/EC) 20 mg PO DAILY vitamin B complex Capsule 1 cap PO DAILY levothyroxine 88 mcg capsule 88 mcg PO DAILY Fiber (psyllium husk-sugar) 3.4 gram/12 gram powder 1 tbsp PO BID Qty: 1368 0RF Rx Instructions: take as instrucked albuterol sulfate 2.5 mg /3 mL (0.083 %) solution for nebulization 2.5 mg inhalation Q6H PRN ipratropium-albuterol 0.5 mg-3 mg(2.5 mg base)/3 mL solution for nebulization 3 ml inhalation QID PRN iron-vit C-vit [id number] [Iron 100 Plus] See Rx Instructions .ROUTE DIRECTED Rx Instructions: as directed; budesonide-formoterol [Symbicort] 80-4.5 mcg/actuation HFA aerosol inhaler 2 puff inhalation BID turmeric 250 mg PO DAILY hydrochlorothiazide 25 mg tablet 25 mg PO DIRECTED Discharge Instructions Additional Instructions: Surgery: Right shoulder arthroscopy with rotator cuff repair (supraspinatus), biceps tenodesis, extensive debridement, subacromial decompression, and distal clavicle excision 11/23/24 Activity: For 6 weeks, you should keep your arm at your side in a neutral position at all times except for physical therapy. Do not try to lift or raise your arm using your own muscles. You should use the sling whenever you are out of the house. At home it is best to remove the sling and rest the arm on a pillow at your side or support the operative side with your other hand. You may allow the arm to dangle at your side. A physical therapy prescription will be sent electronically to begin in about 3 weeks. Standard protocol Prescriptions: Naproxen 250 mg take 1-2 every 12 hours with a meal as needed for moderate pain Oxycodone 5 mg take 1-2 every 4-6 hours as needed for severe pain You may use [id number] Tylenol (acetaminophen) as needed for mild pain. These pain medications may be taken all at once or in different combinations as needed. Also, recommend Colace (docusate) as a stool softener as surgery and pain medicine cause constipation. You may try [id number] diphenhydramine (Benadryl) 25-50 mg nightly as a sleep aid Dressings: Remove shoulder bandage after 3 days. Leave the sticky Steri-Strips in place until they fall off or remove them after you shower. Cover the incisions with Band-Aids or leave them open to air. You may shower after 5 days. Follow-up: 10-[address] Jacobo You may take off the leg compression stockings this evening at home. You may also leave them on a few days longer if you have a history of leg swelling or edema. Let us know right away if you develop any redness, drainage, fevers, chest pain, or trouble breathing. Do not drink alcohol or drive for at least 24 hours after anesthesia. Please call the office during business hours with any questions or concerns. Stand Alone Forms: Anesthesia Discharge Inst., Anish.Nerve Block Instructions, Gemini Salazar ([facility]) Referrals: Shad Jacobo MD [ [facility] STAFF PHYSICIAN, Orthopaedic Surgical] - 12/04/24 10:30 am Activity:: see instructions Equipment/Supplies:: Sling Diet:: As Tolerated Discharge Orders Discharge Orders: Discharge Order (Routine); Ordered 11/24/24 Ordered By: Shad Jacobo DS: Summary Time Spent with Patient providing and/or coordinating discharge services: Less than 30 minutes Status at Discharge Functional status at discharge: independent ambulation Overall status at discharge: patient is progressing back to baseline Mental Status: mental status grossly normal Speech and Movement: speech and movement normal Mood: congruent mood Affect: normal affect Exam Psych Mental Status: mental status grossly normal Speech and Movement: speech and movement normal Mood: congruent mood Affect: normal affect DS: Data Vitals/I&O Vitals and I&O: Vital Signs Temperature 97.7 F 11/24/24 03:30 Temperature Source Temporal Artery Scan 11/24/24 03:30 Pulse 61 11/24/24 03:30 Pulse Rhythm Regular 11/23/24 08:58 Pulse 95 H 11/23/24 16:01 Respiratory Rate 16 11/24/24 03:30 Respiratory Effort Normal 11/23/24 16:21 Respiratory Depth Normal 11/23/24 16:21 Respiratory Pattern Normal 11/23/24 16:21 Blood Pressure 101/65 11/24/24 03:30 Blood Pressure Mean 77 11/24/24 03:30 Blood Pressure Position Supine 11/23/24 11:00 Pulse Oximetry 93 11/24/24 03:30 Respiratory End-tidal CO2 36 11/23/24 14:16 Oxygen Delivery Method Room Air 11/24/24 03:30 Oxygen Flow Rate 0 11/24/24 03:30 Fraction of Inspired Oxygen (FIO2) 37 11/23/24 15:49 Pain Level 4 11/24/24 04:50 Comment Block performed by Yen GREEN with assistance from Alycia COLLINS Patient placed on continuous cardiac and spO2 monitoring at 1034 Time out performed at: 1046 2mg Versed IVP administered by Yen GREEN at 1047 Block end: 1054 11/23/24 10:33 Intake & Output 11/23/24 11/23/24 11/24/24 11:59 23:59 11:59 Intake Total 100 / 2360 2260 / 2360 699.5 / 699.5 Output Total Balance 100 / 2350 2250 / 2350 699.5 / 699.5 Weight 167 lb 1.766 oz Intake: IV 100 / 1660 1560 / 1660 219.5 / 219.5 Oral 700 / 700 480 / 480 Output: Estimated Blood Loss Other: Urine Color Yellow Yellow Urine Appearance Clear Clear Urine Odor Normal None Comment Pt reports voiding independently to toilet, not collected. Pt voided independently to toilet, not uncollected. Emesis Description None PFSH All Active Problems (Updated 11/24/24 @ 06:50 by Shad Jacobo MD) Rotator cuff tear, right (Acute) Bursitis of right shoulder (Acute) Arthritis of right acromioclavicular joint (Acute) Tendonitis of long head of biceps brachii of right shoulder (Acute) Tendinopathy of right biceps tendon (Acute) Rotator cuff tear arthropathy of right shoulder (Acute) s/p Right shoulder arthroscopy with rotator cuff repair (supraspinatus), biceps tenodesis, extensive debridement, subacromial decompression, and distal clavicle excision 11/23/24 Sleep apnea, obstructive (Chronic) Anophthalmos (Acute) Hemorrhoid (Acute) GI bleed (Chronic) Acquired anophthalmos (Acute) Allergic rhinitis (Acute) Bilateral knee pain (Acute) Chronic constipation (Acute) Chronic fatigue syndrome (Acute) Chronic sinusitis (Acute) Depressive disorder (Chronic) Disorder of ethmoidal sinus (Acute) Dizziness and giddiness (Acute) Dysphagia (Acute) Gastric polyposis (Acute) Gastritis (Acute) GERD (gastroesophageal reflux disease) (Chronic) Goiter (Acute) Hernia of abdominal cavity (Acute) Hypercholesteremia (Acute) Hypothyroidism (Chronic) Insomnia (Acute) Iron deficiency anemia (Acute) Malignant tumor of thyroid gland (Acute) Menopause present (Acute) Migraine without aura (Acute) 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) Lung nodule (Acute) Obesity (Chronic) Obstructive sleep apnea syndrome in adult (Acute) Periodic limb movement disorder (Acute) Pure hyperglyceridemia (Acute) Sleep disorder (Acute) URI (upper respiratory infection) (Acute) Rectal bleeding (Acute) Medical History (Updated 11/24/24 @ 06:50 by Shad Jacobo MD) Refractory migraine with aura Joint pain Hypersomnia Disorder of thyroid gland Bursitis Breast lump Amnesia Burst fracture of lumbar vertebra Surgical History (Updated 11/23/24 @ 14:07 by ED Thorne) History of eye removal (R) eye removal History of ankle surgery (~12/08/08) Hx of cataract surgery right eye Hx of cholecystectomy H/O tubal ligation Hx of total hysterectomy laparoscopic. History of colonoscopy (~08/2022) 06/25/19 History of esophagogastroduodenoscopy (EGD) (~08/2022) 08/20/22 egd and closed a duodenal fistula History of Rox fundoplication 07/02/20 History of thyroidectomy Family History (Updated 07/15/23 @ 10:53 by Yvette Llamas) Maternal Grandfather CAD (coronary artery disease) Mother Stroke Diabetes Heart disease Lupus Myocardial infarction Osteoporosis Father Stroke Heart disease Brother Lung cancer Aunt Colon cancer Uncle Colon cancer Social History (Updated 07/15/23 @ 10:29 by Yvette Llamas) Smoking/Tobacco Use Status: Former Tobacco Use Smoking risk assessment performed?: Yes Alcohol Intake: former Drug use: Never Substance use type: does not use Housing: house Do you feel safe at home: Yes Do you feel safe in your relationship?: Yes Time Spent with Patient Time Spent with Patient: <45 minutes Time was spent: preparing to see the patient(eg.review tests), obtaining and/or reviewing separately otained hiistory, ordering medications,tests, procedures, referring, communicating with other health career information specialist, indepentently interpreting results and care coordination
--- NOTE | 2024-11-24 07:09 | RESPIRATORY ---
RT spoke with patient regardng SHAYY. Pt. stated does not use any NIV at baseline and use o2 at baseline.
[2024-11-24 07:46] VITALS: BP 126/81; PULSE 61; RESP 16; TEMP 37.1; O2SAT 96
[2024-11-24] MEDS: Omeprazole 20 MG CAPCR PO (07:48)
[2024-11-24] MEDS: hydroCHLOROthiazide 25 MG TAB PO (07:48)
--- NOTE | 2024-11-24 08:30 | DI.RAD_ITS ---
Exam(s) XR PORTABLE CHEST AP EXAM: XR PORTABLE CHEST AP CLINICAL HISTORY: SOB TECHNIQUE: 2D digital imaging was performed. COMPARISON: CR XR CHEST 2VW (D) from 04/29/2023 CR XR PORTABLE CHEST AP from 11/23/2024 FINDINGS: LUNGS: Significant improvement in aeration of the right upper lobe compared to the previous exam. Linear atelectasis remains present in both right upper and lower lobes. No visible pneumonia. The right diaphragm is again noted to be elevated. The left lung is clear. No pleural abnormality seen. HEART: Normal size. AORTA: Normal diameter. BONES: Unremarkable for age. Soft tissues: Unremarkable. IMPRESSION: Significant improvement in air aeration of the right upper lobe. Significant atelectasis persists. The preliminary [facility] report was reviewed. DATA REPOSITORY: RADIATION DOSE DELIVERED:
[2024-11-24] MEDS: Budesonide/Formoterol 80/4.5 6.9 GM 60 PUFF INH IH (08:34)
--- NOTE | 2024-11-24 08:42 | PDOC.CMIN ---
Date of service: 11/24/24 Time of Service: 08:43 Care Management Initial Assmt Functional Status/Living Situation Town of Residence: [place] Advance Directives Advance Directives: Do you have an Advance Directive: N 04/19/22, 12:32 AD On File at [facility]: N 04/19/22, 12:32 Date Asked 11/21/24 11/21/24, 04:53 AD Date Reviewed COLST On File at [facility] COLST Date Scanned Code Status Resuscitation Status Full Code Care Team Visit Care Team Role Provider Type Walker Quintana Primary Care Provider NON-[facility] STAFF PHYSICIAN Shad Jacobo MD Admit Provider [facility] STAFF PHYSICIAN Attending Provider Social Determinants of Health Screening Social Determinants of health last assessed in clinic: 11/23/24 Will the Patient Participate in the Screening?: Yes Do you worry about having a steady place to live?: no Problems where you live: no known problems In the past 12 months, have you had to go without electric, gas, oil or water in your home?: no Has lack of transportation kept you from medical appointments or from doing things needed for daily living?: no Has anyone in your life made you feel unsafe or unsupported?: no How hard is it for you to pay for the very basics like food, housing, medical care, and heating? Would you say it is:: Not hard at all Do you want help finding or keeping work or a job?: I do not need or want help If for any reason you need help with day-to-day activities such as bathing, preparing meals, shopping, managing finances, etc., do you get the help you need?: I don?t need any help How often do you feel lonely or isolated from those around you?: Never Do you speak a language other than Kosovan at home?: No PFSH All Active Problems (Updated 11/24/24 @ 06:50 by Shad Jacobo MD) Rotator cuff tear, right (Acute) Bursitis of right shoulder (Acute) Arthritis of right acromioclavicular joint (Acute) Tendonitis of long head of biceps brachii of right shoulder (Acute) Tendinopathy of right biceps tendon (Acute) Rotator cuff tear arthropathy of right shoulder (Acute) s/p Right shoulder arthroscopy with rotator cuff repair (supraspinatus), biceps tenodesis, extensive debridement, subacromial decompression, and distal clavicle excision 11/23/24 Sleep apnea, obstructive (Chronic) Anophthalmos (Acute) Hemorrhoid (Acute) GI bleed (Chronic) Acquired anophthalmos (Acute) Allergic rhinitis (Acute) Bilateral knee pain (Acute) Chronic constipation (Acute) Chronic fatigue syndrome (Acute) Chronic sinusitis (Acute) Depressive disorder (Chronic) Disorder of ethmoidal sinus (Acute) Dizziness and giddiness (Acute) Dysphagia (Acute) Gastric polyposis (Acute) Gastritis (Acute) GERD (gastroesophageal reflux disease) (Chronic) Goiter (Acute) Hernia of abdominal cavity (Acute) Hypercholesteremia (Acute) Hypothyroidism (Chronic) Insomnia (Acute) Iron deficiency anemia (Acute) Malignant tumor of thyroid gland (Acute) Menopause present (Acute) Migraine without aura (Acute) 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) Lung nodule (Acute) Obesity (Chronic) Obstructive sleep apnea syndrome in adult (Acute) Periodic limb movement disorder (Acute) Pure hyperglyceridemia (Acute) Sleep disorder (Acute) URI (upper respiratory infection) (Acute) Rectal bleeding (Acute) Medical History (Updated 11/24/24 @ 06:50 by Shad Jacobo MD) Refractory migraine with aura Joint pain Hypersomnia Disorder of thyroid gland Bursitis Breast lump Amnesia Burst fracture of lumbar vertebra Surgical History (Updated 11/23/24 @ 14:07 by ED Thorne) History of eye removal (R) eye removal History of ankle surgery (~12/08/08) Hx of cataract surgery right eye Hx of cholecystectomy H/O tubal ligation Hx of total hysterectomy laparoscopic. History of colonoscopy (~08/2022) 06/25/19 History of esophagogastroduodenoscopy (EGD) (~08/2022) 08/20/22 egd and closed a duodenal fistula History of Rox fundoplication 07/02/20 History of thyroidectomy Family History (Updated 07/15/23 @ 10:53 by Yvette Llamas) Maternal Grandfather CAD (coronary artery disease) Mother Stroke Diabetes Heart disease Lupus Myocardial infarction Osteoporosis Father Stroke Heart disease Brother Lung cancer Aunt Colon cancer Uncle Colon cancer Social History (Updated 07/15/23 @ 10:29 by Yvette Llamas) Smoking/Tobacco Use Status: Former Tobacco Use Smoking risk assessment performed?: Yes Alcohol Intake: former Drug use: Never Substance use type: does not use Housing: house Do you feel safe at home: Yes Do you feel safe in your relationship?: Yes
--- NOTE | 2024-11-24 10:45 | DI.[facility]_ITS ---
PROCEDURE INFORMATION: Exam: XR Chest Exam date and time: 11/24/2024 10:35 AM Age: 64 years old Clinical indication: Shortness of breath TECHNIQUE: Imaging protocol: Radiologic exam of the chest. Views: 1 view. COMPARISON: CR XR PORTABLE CHEST AP 11/23/2024 2:25 PM FINDINGS: Lungs: Atelectasis at the lung bases. Pleural spaces: No large pleural effusion seen. Heart/Mediastinum: No cardiomegaly. Diaphragm: Elevated right hemidiaphragm. Bones/joints: No acute abnormality. IMPRESSION: No acute findings to explain reported symptoms. Dictated and Authenticated by: Emerald Camacho MD. Orderin Donnell Kulkarni MD
== END 2024-11-24 10:44 | disposition home or self-care (01) ==
LOC: MS 16:27
PROVIDERS: Admitting Provider Student in an Organized Health Care Education/Training Program; PCP Family Medicine; Visit Provider Student in an Organized Health Care Education/Training Program
PROC: (CPT 29827; principal; 2024-11-23 10:15)
DX: M75.101 Unspecified rotator cuff tear or rupture of right shoulder, not specified as traumatic (principal); M75.21 Bicipital tendinitis, right shoulder; M19.011 Primary osteoarthritis, right shoulder; M75.51 Bursitis of right shoulder; G93.32 Myalgic encephalomyelitis/chronic fatigue syndrome; E89.0 Postprocedural hypothyroidism; K21.9 Gastro-esophageal reflux disease without esophagitis; K29.70 Gastritis, unspecified, without bleeding; E78.00 Pure hypercholesterolemia, unspecified; E66.9 Obesity, unspecified; D50.9 Iron deficiency anemia, unspecified; Z79.899 Other long term (current) drug therapy; G89.18 Other acute postprocedural pain
CPT/HCPCS: 29827; 29823; 29824; 29828; 29826; 64415; 94640; 71045; 94664; 94760; G0378; J0131; J0360; J0665; J0666; J0690; J1100; J1171; J1805; J1885; J2250; J2270; J2312; J2371; J2405; J2704; J3010